=== PATIENT | female | born 1970 | race Asian ===

== ENCOUNTER 2020-04-21 04:39 | Day surgery (SDC) | payer BC, OTHER ==
[2020-04-17 18:53] VITALS: BMI 34.2
[2020-04-21] MEDS ORDERED: IBUPROFEN 400 MG TABLET (FP) PO PRN (07:59)
[2020-04-21] MEDS ORDERED: ACETAMINOPHEN 325 MG TABLET (FP) PO PRN (07:59)
[2020-04-21] MEDS ORDERED: MIDAZOLAM HCL 2 MG/2 ML SINGLE DOSE VIAL ONE (09:23)
[2020-04-21] MEDS ORDERED: PROPOFOL 20 ML ONE ×2 (09:23→10:20)
[2020-04-21] MEDS ORDERED: ACETAMINOPHEN 325 MG TABLET (FP) ONE (12:58)
[2020-04-21 13:20] VITALS: BP 131/74; PULSE 73; TEMP 97.8
== END 2020-04-21 13:26 | disposition home or self-care (01) ==
LOC: JASU-SURG 04:39
PROVIDERS: ATTEND Obstetrics & Gynecology
PROC: 0UJD8ZZ Inspection of Uterus and Cervix, Via Natural or Artificial Opening Endoscopic (ICD-10-PCS; 2020-04-21)
PROC: 0UB98ZZ Excision of Uterus, Via Natural or Artificial Opening Endoscopic (ICD-10-PCS; principal; 2020-04-21 09:30)
PROC: 0UDB7ZX Extraction of Endometrium, Via Natural or Artificial Opening, Diagnostic (ICD-10-PCS; 2020-04-21 09:30)
DX: N84.0 Polyp of corpus uteri (principal); D25.0 Submucous leiomyoma of uterus
CPT/HCPCS: 36415; 84703; 86850; 86900; 86901; 88302-TC; 88305-TC; 94760